=== PATIENT | male | born 1990 | race Caucasian/White ===

== ENCOUNTER → 2018-10-03 | Outpatient (REF) | payer OTHER ==
[2018-10-03 19:59] LABS: MONO REFLEX EBV COMP NEGATIVE (NEGATIVE)
[2018-10-03 20:06] LABS: BASO # 0.1 10^3/uL (0.0-0.2); BASO % 0.8 % (0.0-1.0); EOS # 0.1 10^3/uL (0.0-0.50); EOS % 1.8 % (0.0-3.0); HEMATOCRIT 42.8 % (42.0-52.0); HEMOGLOBIN 14.4 g/dl (13.5-17.5); LYMPH # 2.8 10^3/uL (1.5-4.5); LYMPH % 36.2 % (24.0-44.0); MEAN CORPUSCULAR HEMOGLOBIN 31.3 pg (27.0-33.0); MEAN CORPUSCULAR HGB CONC 33.6 g/dl (32.0-36.5); MONO # 1.1 10^3/uL (0.0-0.8); MONO % 13.5 % (0.0-5.0); NEUTROPHILS # 3.7 10^3/uL (1.8-7.7); NEUTROPHILS % 47.2 % (36.0-66.0); PLATELET COUNT, AUTOMATED 267 10^3/uL (150-450); WHITE BLOOD COUNT 7.8 10^3/uL (4.0-10.0)
[2018-10-06 00:40] LABS: EBV AB TO NUCLEAR ANTIGEN 85.4 U/mL (0.0-17.9); EBV VIRAL CAPSID AG IgM <36.0 U/mL (0.0-35.9)
== END ==
LOC: M LABDRWAD 19:28
PROVIDERS: ATTEND Physician Assistant Medical
DX: R59.0 Localized enlarged lymph nodes (principal)

== ENCOUNTER 2019-02-24 16:43 | Emergency (ER) | payer OTHER ==
[~2019-02-24] VITALS: Ht 170.2 cm; Wt 102.3 kg
[2019-02-24] MEDS ORDERED: LORA-674 PO (16:47)
[2019-02-24] MEDS ORDERED: VITA500045 PO (16:47)
[2019-02-24] MEDS ORDERED: PARO20TA3 PO (16:47)
[2019-02-24 16:57] VITALS: BP 148/81
[2019-02-24] MEDS ORDERED: IBUPROFEN 600 MG TAB PO ONE (17:00)
[2019-02-24] MEDS ORDERED: IBUP-1022 PO (17:01)
== END 2019-02-24 17:15 | disposition home or self-care (01) ==
LOC: M ED 16:43
DX: G56.01 Carpal tunnel syndrome, right upper limb (principal); F17.200 Nicotine dependence, unspecified, uncomplicated; Z79.899 Other long term (current) drug therapy

== ENCOUNTER → 2020-02-26 | Outpatient (REF) | payer OTHER ==
[~2020-02-26] MED LIST: IBUP-1022 PO; LORA-674; LORA-674 PO; PARO20TA3; PARO20TA3 PO; VITA500045 PO; VITA50005
[2020-02-26 17:08] LABS: BLOOD UREA NITROGEN 16 MG/DL (7-18); CARBON DIOXIDE LEVEL 27 MEQ/L (21-32); CHLORIDE LEVEL 105 MEQ/L (98-107); CREATININE FOR GFR 0.81 MG/DL (0.70-1.30); GLOMERULAR FILTRATION RATE > 60.0 (>60); GLUCOSE, FASTING 101 MG/DL (70-100); POTASSIUM SERUM 4.1 MEQ/L (3.5-5.1); SODIUM LEVEL 139 MEQ/L (136-145)
[2020-02-26 17:31] LABS: TOTAL 25(OH) VITAMIN D 13.7 NG/ML (30.0-100.0)
== END ==
LOC: MERGE 11:31 → M SFHCPLAZ 11:31
PROVIDERS: ATTEND Nurse Practitioner Family
DX: R73.03 Prediabetes (principal); E55.9 Vitamin D deficiency, unspecified

== ENCOUNTER 2020-05-06 09:15 | Emergency (ER) | payer OTHER ==
[~2020-05-06] VITALS: Ht 170.2 cm; Wt 106.7 kg
[~2020-05-06 09:15] MED LIST changes: -LORA-674; -PARO20TA3; -VITA50005
[2020-05-06] MEDS ORDERED: LORA-674 (09:22)
[2020-05-06] MEDS ORDERED: PARO20TA3 (09:22)
[2020-05-06] MEDS ORDERED: VITA50005 (09:22)
--- NOTE | 2020-05-06 10:20 | REP ---
Clinical: Right knee pain. Technique: AP, lateral, bilateral oblique and sunrise views right knee. Findings: The osseous structures are intact and there is no evidence for acute fracture or dislocation. Prepatellar swelling and suspected suprapatellar effusion require correlation. Impression: No acute fracture or dislocation. Swelling and suprapatellar effusion. Electronically Signed by Randy Ruth MD 05/06/2020 10:11 A
[2020-05-06 10:42] VITALS: BP 133/74
== END 2020-05-06 10:45 | disposition home or self-care (01) ==
LOC: MERGE 09:15 → M ED 09:15
DX: M25.461 Effusion, right knee (principal); S83.91XA Sprain of unspecified site of right knee, initial encounter; X58.XXXA Exposure to other specified factors, initial encounter; Y92.89 Other specified places as the place of occurrence of the external cause; F33.9 Major depressive disorder, recurrent, unspecified; Z79.899 Other long term (current) drug therapy

== ENCOUNTER → 2020-09-13 | Outpatient (CLI) | payer OTHER ==
[~2020-09-13] MED LIST changes: +LORA-674; +PARO20TA3; +VITA50005
== END ==
LOC: M LABSMTC 07:59
PROVIDERS: ATTEND Orthopaedic Surgery
DX: Z01.812 Encounter for preprocedural laboratory examination (principal); Z20.828 Contact with and (suspected) exposure to other viral communicable diseases

== ENCOUNTER 2021-01-31 16:12 | Emergency (ER) | payer OTHER ==
[~2021-01-31] VITALS: Ht 170.2 cm; Wt 67.7 kg
[2021-01-31] MEDS ORDERED: NAPR220C14 PO (16:17)
[2021-01-31 18:39] LABS: BASO # 0.1 10^3/uL (0.0-0.2); BASO % 0.5 % (0.0-1.0); EOS # 0.3 10^3/uL (0.0-0.5); HEMATOCRIT 44.5 % (42.0-52.0); LYMPH # 4.4 10^3/uL (1.5-5.0); LYMPH % 28.5 % (24.0-44.0); MEAN CORPUSCULAR HEMOGLOBIN 31.5 pg (27.0-33.0); MEAN CORPUSCULAR HGB CONC 33.7 g/dl (32.0-36.5); MEAN CORPUSCULAR VOLUME 93.5 fl (80.0-96.0); MONO % 6.6 % (2.0-8.0); NEUTROPHILS # 9.5 10^3/uL (1.5-8.5); NEUTROPHILS % 61.8 % (36.0-66.0); PLATELET COUNT, AUTOMATED 342 10^3/uL (150-450); RED BLOOD COUNT 4.76 10^6/uL (4.30-6.10); WHITE BLOOD COUNT 15.4 10^3/uL (4.0-10.0)
--- NOTE | 2021-01-31 18:49 | REP ---
INDICATION: pain/swelling. Bilateral knee series. COMPARISON: Comparison right knee radiographs are from May 06, 2020.. TECHNIQUE: 9 views. Five of each knee. Both knees are included on the sunrise view. FINDINGS: Five views of the left and right knee demonstrate normal bones, joints, and soft tissues. No fracture or subluxation is seen. No opaque foreign body noted. IMPRESSION: Negative bilateral knee radiographic series. <Electronically signed by Rohit Cintron > 01/31/21 [id number]
[2021-01-31 18:50] LABS: C REACTIVE PROTEIN QUANTITATIV 1.48 MG/DL (0.00-0.30); RHEUMATOID FACTOR QUANT < 10.0 IU/ML (<15.0)
[2021-01-31 19:08] LABS: ERYTHROCYTE SEDIMENTATION RATE 20 mm/hr (0-15)
[2021-01-31 21:10] VITALS: BP 150/77
[2021-01-31 23:51] LABS: CHLAMYDIA DNA AMPLIFICATION NEGATIVE (NEGATIVE); GC DNA AMPLIFICATION NEGATIVE (NEGATIVE)
[2021-02-03 17:07] LABS: Lyme Disease IgG/IgM Antibodie <0.91 ISR (0.00-0.90); Lyme Disease IgM Ab Quantitati <0.80 index (0.00-0.79)
== END 2021-01-31 21:10 | disposition home or self-care (01) ==
LOC: M ED 16:12
DX: M25.561 Pain in right knee (principal); M25.562 Pain in left knee; G47.33 Obstructive sleep apnea (adult) (pediatric); Z79.899 Other long term (current) drug therapy; Z77.098 Contact with and (suspected) exposure to other hazardous, chiefly nonmedicinal, chemicals

== ENCOUNTER → 2021-06-04 | Outpatient (REF) | payer OTHER ==
[~2021-06-04] MED LIST changes: +ERGO500029; +NAPR220C14 PO; -VITA50005
[2021-06-04 13:56] LABS: HEMOGLOBIN A1c 5.5 %
[2021-06-04 14:13] LABS: ALBUMIN 3.8 GM/DL (3.2-5.2); ALT/SGPT 34 U/L (12-78); BILIRUBIN,TOTAL 0.4 MG/DL (0.2-1.0); BLOOD UREA NITROGEN 17 MG/DL (7-18); CALCIUM LEVEL 9.1 MG/DL (8.5-10.1); CARBON DIOXIDE LEVEL 28 MEQ/L (21-32); CHLORIDE LEVEL 106 MEQ/L (98-107); CHOLESTEROL LEVEL 195 MG/DL (<200); CHOLESTEROL RISK RATIO 5.416 (<5); CREATININE FOR GFR 0.77 MG/DL (0.70-1.30); FREE T4 0.99 NG/DL (0.76-1.46); GLOMERULAR FILTRATION RATE > 60.0 (>60); GLUCOSE, FASTING 112 MG/DL (70-100); HDL CHOLESTEROL 36 MG/DL (>40); LDL CHOLESTEROL 110 MG/DL (<100); NON-HDL-C 159 MG/DL; POTASSIUM SERUM 4.6 MEQ/L (3.5-5.1); SODIUM LEVEL 137 MEQ/L (136-145); THYROID STIMULATING HORMONE 0.766 uIU/ML (0.358-3.740); TOTAL 25(OH) VITAMIN D 31.8 NG/ML (30.0-100.0); TOTAL PROTEIN 7.2 GM/DL (6.4-8.2); TRIGLYCERIDES LEVEL 245 MG/DL (<150)
== END ==
LOC: M SFHCADAM 10:15
PROVIDERS: ATTEND Nurse Practitioner Family
DX: R73.03 Prediabetes (principal); E66.09 Other obesity due to excess calories; E55.9 Vitamin D deficiency, unspecified

== ENCOUNTER 2021-08-06 18:11 | Emergency (ER) | payer OTHER ==
[~2021-08-06] VITALS: Ht 170.2 cm; Wt 104.5 kg
[2021-08-06 18:11] VITALS: BP 139/81
--- OUTSIDE RECORDS SUMMARY | 2021-08-06 18:18 | CCD ---
Author Organization Unknown Address [address] [place] [address] Phone [phone] Care Team Providers Care Travel Agent Name Role Phone [phone] Covid Vaccine Nurse Unavailable Unavailable Allergies None recorded. Medications None recorded. Problems None recorded. Procedures None recorded. Results Lab Results None recorded. Past Encounters 07/22/2021 Administration of SARS-CoV-2 Antigen Vaccine PRIYA Amador: [address] [place] [phone], Ph. 07/01/2021 Administration of SARS-CoV-2 Antigen Vaccine PRIYA Amador: [address] [place] [phone], Ph. Social History None recorded. Vaccine List Vaccine Type COVID-19, mRNA, LNP-S, PF, 30 mcg/0.3 mL dose .3 mL .3 mL Plan of Care Reminders Provider Appointments None recorded. Lab None recorded. Referral None recorded. Procedures None recorded. Surgeries None recorded. Imaging None recorded. Vitals None recorded.
--- OUTSIDE RECORDS SUMMARY | 2021-08-06 18:18 | CCD ---
Author Author [facility] Organization [facility] Address Unknown Phone Unavailable Care Team Providers Care Bottler Helper Name Role Phone Sophie Barrios Unavailable PROBLEMS Type Condition ICD9-CM Code ZJO32-[id number] Code Onset Dates Condition S tatus W/U Status Risk SNOMED Code Notes Problem Body mass index (BMI) of 30.0 to 39.9 E66.9 Ac tive confirmed 068963409 Problem STEPHAN (obstructive sleep apnea) G47.33 Active confirm ed 87588407 Problem Allergic rhinitis, seasonal J30.2 Active confirmed 095144816 Problem Family history of other cardiovascular diseases Z8 2.49 Active confirmed 529180228 Problem Vitamin D deficiency E55.9 Active confirmed 82354168 Problem Pre-diabetes R73.03 Active confirmed 8996648 02 Problem Premature ejaculation F52.4 Active confirmed 68862603 Problem BMI 36.0-36.9,adult Z68.36 Active confirmed 783567145 Problem Allergic rhinitis J30.9 Active confirmed 61 943299 Problem Mixed hyperlipidemia E78.2 Active confirmed 493150289 Problem Family history of diabetes mellitus (DM) Z83.3 Active confirmed 604708855 Problem Moderate major depression, single episode F32.1 Active confirmed 243986936 Problem Other tobacco product nicotine dependence, uncomplicated F17.290 Active confirmed 19613814 Problem Body mass index [BMI] 38.0-38.9, adult Z68.38 A ctive confirmed [id number] Problem Other obesity due to excess calories E66.09 Act daniel confirmed 348612012 ALLERGIES Allergen (clinical drug ingredient) Drug/Non Drug Allergy do cumented on EMR Reaction Allergy Type Onset Date Status seasonal allergies congestion Non Drug Allergy Active ENCOUNTERS from 1988 to 2021-06-22 Encounter Location Date Provider Diagnosis [facility] Thu [address] [facility] [phone] [place] [phone] May, Sophie Barrios Vitamin D deficiency E55.9 ; Moderate major depression, single episode F32.1 ; Premature ejaculation F52.4 ; Mixed hyperlipidemia E78.2 ; Pre- diabetes R73.03 ; Allergic rhinitis J30.9 and Other tobacco product nicotine dependence, uncomplicated F17.290 IMMUNIZATIONS Vaccine Route Administration Date Status Influenza 18 yrs & older Flublok IM Intramuscular Aug 29, 2019 Administered Pneumococcal Adult 0.5mL Pneumovax 23 IM Intramuscular January 10, 2020 Administered TDAP 0.5mL (Boostrix) IM Intramuscular January 07, 2014 Administe red Influenza 6mo & up Fluzone IM Intramuscular Dec 07, 2018 Admi nistered Influenza 6mo & up Fluzone IM Intramuscular Sep 02, 2016 Admi nistered Influenza 6mo & up Fluzone Unknown Sep 09, 2014 Admin istered SOCIAL HISTORY Tobacco Use: Social History Observation Description Date Details (start date - stop date) Former Smoker Sex Assigned At : Social History Observation Description Sex Assigned At Unknown Audit Question Answer Notes Total Score: 1 Interpretation: Alcohol Education Language: Question Answer Notes Languages spoken: Yi 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 Yes Have you ever had an STD? No Prevention Strategies discussed: Other with Women only Use protection? No Drug and Alcohol Question Answer Notes Total Score: 0 Interpretation: No problems reported Alcohol Screening: Question Answer Notes Did you have a drink containing alcohol in the past year? Ye s Points 3 Interpretation Negative How often did you have six or more drinks on one occas ion in the past year? Less than monthly (1 point) How many drinks did you have on a typica l day when you were drinking in the past year? 1 or 2 (0 points) How often did you have a drink containing alcohol in t he past year? Two to four times a month (2 points) BMI Care Goal Follow-Up Question Answer Notes Above Normal BMI Follow-Up Giving encouragement to exercise Tobacco Use: Question Answer Notes Are you a: former smoker How long has it been since you last smoked? 1-5 years REASON FOR REFERRAL No Information VITAL SIGNS Weight 229 lbs May, Height 67 in May, BMI 35.86 kg/m2 May, Heart Rate 84 /min May, Respiratory Rate 20 /min May, Temperature 97.1 degrees Fahrenheit May, Oximetry 97 May, Blood pressure systolic 130 mm Hg May, Blood pressure diastolic 70 mm Hg May, MEDICATIONS Medication SIG (Take, Route, Frequency, Duration) Notes Start Da te End Date Status Loratadine 10 MG 1 tablet Orally Once a day for 90 day(s) Active PARoxetine HCl 20 MG 1 tablet in the morning Orally Once a day for 30 Active Aleve 220 MG 1 tablet with food or milk as needed Orally once daily Active Vitamin D 2000 UNIT 1 tablet Orally Once a day with food for 90 day(s ) Active Saline Nasal [place] 0.65 % 2 drops in each nostril as n eeded Nasally every 4 hrs as needed Active PARoxetine HCl 30 MG 1 tablet in the morning Orally Once a day f or day(s) May, Active PROCEDURES No Information RESULTS No Results REASON FOR VISIT r/s f/u labs MEDICAL (GENERAL) HISTORY Type Description Date Medical History ganglion cyst on Rt wrist ( x 6 yrs), S/ P asp Dr Wilcox 02/27- Medical History Kawasaki Disease 3 yo Medical History Robertson- 5 yo Medical History LDL 92 12/28 Medical History Vit D Def. 16 12/28 Medical History allergic rhinitis, seasonal Medical History obesity Surgical History ganglion cyst removed rt wrist- [facility] Surgical History [place] [facility] [place] Goals Section No Information Health Concerns No Information MEDICAL EQUIPMENT No Information MENTAL STATUS No Information FUNCTIONAL STATUS No Information ASSESSMENTS Encounter Date Diagnosis Assessment Notes Treatment Notes Treatm ent Clinical Notes May, Vitamin D deficiency (ICD-10 - E55.9) improved - continue daily Vit D - may increase dose to 2 tabs over the winter May, Moderate major depression, single episode (ICD-1 0 - F32.1) mood good, will increase dose as discussed May, Premature ejaculation (ICD-10 - F52.4) increase paroxetine as above May, Mixed hyperlipidemia (ICD-10 - E78.2) diet & exercise for high Trig and low HDL reviewed with patient. Check lipids yearly 31 Aug, 2021 Pre-diabetes (ICD-10 - R73.03) reinforced diet changes, lab improved, monitor yearly May, Allergic rhinitis (ICD-10 - J30.9) controlled on current meds May, Other tobacco product nicoti ne dependence, uncomplicated (ICD-10 - F17.290) continues vaping with decreasing nicotine dose - encouraged to taper off PLAN OF TREATMENT Medication Medication Name Sig Start Date Stop Date Loratadine 10 MG 1 tablet Orally Once a day for 90 day(s) Saline Nasal [place] 0.65 % 2 drops in each nostril as n eeded Nasally every 4 hrs as needed PARoxetine HCl 30 MG 1 tablet in the morning Orally Once a d ay for 90 day(s) May, Vitamin D 2000 UNIT 1 tablet Orally Once a day with food for 90 day(s) Treatment Notes Assessment Notes Clinical Notes Vitamin D deficiency improved - continue daily V it D - may increase dose to 2 tabs over the winter Moderate major depression, single episode mood good, will increase dose as discussed Premature ejaculation increase paroxetine as above Mixed hyperlipidemia diet & exercise for high Tri g and low HDL reviewed with patient. Check lipids yearly Pre-diabetes reinforced diet changes, lab improved, monitor yearly Allergic rhinitis controlled on current meds Other tobacco product nicotine dependence, uncomplicat ed continues vaping with decreasing nicotine dose - encouraged to taper off Next Appt Details 1 Year Reason:AWV Follow Up:1 YearAWV Insurance Providers Payer Name Payer Address Payer Phone Insured Name Patient Relati onship to Insured Coverage Start Date Coverage End Date [facility] [address] [facility] [phone] EDMOND RICHARDSON self
--- OUTSIDE RECORDS SUMMARY | 2021-08-06 18:18 | CCD ---
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 Name Role Phone Maring, Adam PA Unavailable Unavailable Maring, Adam PA Unavailable Unavailable Maring, Adam PA Unavailable Unavailable Maring, Adam PA Unavailable Unavailable Maring, Adam PA Unavailable Unavailable Maring, Adam PA Unavailable Unavailable Maring, Adam PA Unavailable Unavailable Maring, Adam PA Unavailable Unavailable Maring, Adam PA Unavailable Unavailable Maring, Adam PA Unavailable Unavailable Maring, Adam PA Unavailable Unavailable Maring, Adam PA Unavailable Unavailable Maring, Adam PA Unavailable Unavailable Maring, Adam PA Unavailable Unavailable Maring, Adam PA Unavailable Unavailable Maring, Adam PA Unavailable Unavailable DENYS TONEY MD Unavailable Unavailable DENYS TONEY MD Unavailable Unavailable DENYS TONEY MD Unavailable Unavailable DENYS TONEY MD Unavailable Unavailable DENYS TONEY MD Unavailable Unavailable EDNYS TONEY MD Unavailable Unavailable DENYS TONEY MD Unavailable Unavailable MARKWITH, DENYS OBANDO Unavailable Unavailable MARKWITH, DENYS OBANDO Unavailable Unavailable MARKWITH, DENYS OBANDO Unavailable Unavailable MARKWITH, DENYS OBANDO Unavailable Unavailable MARKWITH, DENYS OBANDO Unavailable Unavailable MARKWITH, DENYS OBANDO Unavailable Unavailable MARKWITH, DENYS OBANDO Unavailable Unavailable MARKWITH, DENYS OBANDO Unavailable Unavailable MARKWITH, DENYS OBANDO Unavailable Unavailable MARKWITH, DENYS OBANDO Unavailable Unavailable MARKWITH, DENYS OBANDO Unavailable Unavailable MARKWITH, DENYS OBANDO Unavailable Unavailable MARKWITH, DENYS OBANDO Unavailable Unavailable MARKWITH, DENYS OBANDO Unavailable Unavailable MARKWITH, DENYS OBANDO Unavailable Unavailable MARKWITH, DENYS OBANDO Unavailable Unavailable MARKWITH, DENYS OBANDO Unavailable Unavailable MARKWITH, DENYS OBANDO Unavailable Unavailable MARKWITH, DENYS OBANDO Unavailable Unavailable MARKWITH, DENYS OBANDO Unavailable Unavailable MARKWITH, DENYS OBANDO Unavailable Unavailable MARKWITH, DENYS OBANDO Unavailable Unavailable MARKWITH, DENYS OBNADO Unavailable Unavailable MARKWITH, DENYS OBANDO Unavailable Unavailable MARKWITH, DENYS OBANDO Unavailable Unavailable MARKWITH, DENYS OBANDO Unavailable Unavailable Schilling, Harrah Poonam Unavailable Unavailable Schilling, Harrah Poonam Unavailable Unavailable Schilling, Harrah Poonam Unavailable Unavailable Schilling, Harrah Poonam Unavailable Unavailable Schilling, Harrah Poonam Unavailable Unavailable Schilling, Harrah Poonam Unavailable Unavailable Schilling, Harrah Poonam Unavailable Unavailable Schilling, Harrah Poonam Unavailable Unavailable Schilling, Harrah Poonam Unavailable Unavailable Schilling, Harrah Poonam Unavailable Unavailable Schilling, Harrah Poonam Unavailable Unavailable Schilling, Harrah Poonam Unavailable Unavailable Schilling, Harrah Poonam Unavailable Unavailable Re-disclosure Warning The records that you are about to access may contain information from federally-assisted alcohol or drug abuse programs. If such information is present, then the following federally mandated warning applies: This information has been disclosed to you from records protected by federal confidentiality rules (42 CFR part 2). The federal rules prohibit you from making any further disclosure of this information unless further disclosure is expressly permitted by the written consent of the person to whom it pertains or as otherwise permitted by 42 CFR part 2. A general authorization for the release of medical or other information is NOT sufficient for this purpose. The Federal rules restrict any use of the information to criminally investigate or prosecute any alcohol or drug abuse patient.The records that you are about to access may contain highly sensitive health information, the redisclosure of which is protected by Article 27-F of the [facility] Public Health law. If you continue you may have access to information: Regarding HIV / AIDS; Provided by facilities licensed or operated by the [facility] Office of Mental Health; or Provided by the [facility] Office for People With Developmental Disabilities. If such information is present, then the following [facility] mandated warning applies: This information has been disclosed to you from confidential records which are protected by state law. State law prohibits you from making any further disclosure of this information without the specific written consent of the person to whom it pertains, or as otherwise permitted by law. Any unauthorized further disclosure in violation of state law may result in a fine or senior living sentence or both. A general authorization for the release of medical or other information is NOT sufficient authorization for further disc losure. Allergies and Adverse Reactions Type Description Substance Reaction Status Data Source(s ) Allergy to substance Allergy to substance Allergy to substance [place] ([facility]) Allergy to substance Allergy to substance Allergy to substance [place] ([facility]) Family History Family Member Name Family Member Gender Family Member Status Date o f Status Description Data Source(s) Unknown Unknown Problem [facility] ([facility]) mother, MGM and maternal siblings Unknown Male Problem MEDENT ([facility]) Encounters Encounter Providers Location Date Indications Data Source(s ) Outpatient Attender: Adam DEJESUS 07/22/20 12:50:37 PM EDT - 07/22/2021 01:13:49 PM EDT Docu[facility]ap ([facility] ) ANDERSON AmadorC: [address] [place] [address], Ph. Attender: Poonam Schilling [facility] 07/22/2021 12:00:00 AM EDT [facility] ([facility]) ANDERSON AmadorC: [address] [place] [address], Ph. Attender: Poonam Schilling [facility] 07/01/2021 12:00:00 AM EDT [place] ([facility]) ANDERSON AmadorC: [address] [place] [address], Ph. Attender: Poonam [facility] 07/01/2021 12:00:00 AM EDT [facility] ([facility]) [place]patient [address] [address] 06/16/2021 12:00:00 AM EDT eCW1 ([facility]) Outpatient [address] [address] 05/15/2021 12:00:00 AM EDT eCW1 ([facility]) Unknown [address] [facility] [address] 05/11/2021 12:00:00 AM EDT eCW1 ([facility]) Outpatient [address] [address] 02/13/2021 12:00:00 AM EDT eCW1 ([facility]) Outpatient Attender: Adam DEJESUS 01/15/20 08:32:10 AM EDT - 01/14/2021 10:14:08 AM EDT [facility] ([facility] ) Office Visit Attender: DENYS TONEY MD Physical Therapy 01:45:00 PM EST MEDENT ([facility]) Outpatient Attender: DENYS TONEY MD Physical Therapy 10:00:00 AM EDT MED[facility] ([facility]) [place] [address] [address] 07/16/2020 12:00:00 AM EDT eCW1 ([facility]) Immunizations Vaccine Date Status Description Data Source(s) COVID-19, mRNA, LNP-S, PF, 30 mcg/0.3 mL dose 07/23/2021 07: 57:16 AM EDT completed 10.3 mL [place] ([facility]) COVID-19 VACCINE Pfizer 07/23/2021 12:00:00 AM EDT completed [place] Vaccine Series Complete: YESThis Data wa s Submitted to [facility] Via GTxcel. COVID-19, mRNA, LNP-S, PF, 30 mcg/0.3 mL dose 07/01/2021 04: 10:14 PM EDT completed .3 mL [place] ([facility]) COVID-19, mRNA, LNP-S, PF, 30 mcg/0.3 mL dose 07/01/2021 04: 10:14 PM EDT completed .3 mL [place] ([facility]) COVID-19 VACCINE Pfizer 07/01/2021 12:00:00 AM EDT completed [place] Vaccine Series Complete: NOThis Data was Submitted to [facility] Via GTxcel. Medications Medication Brand Name Start Date Product Form Dose Route Admi nistrative Instructions Pharmacy Instructions Status Indications Reaction Description Data Source(s) Paroxetine Hydrochloride 30 MG Oral Tablet PAROXETINE HCL 06/17/2021 12:00:00 AM EDT tablet 90 TAKE ONE TABLET BY MOUTH ROCKY MEDINA MORNING TAKE ONE TABLET BY MOUTH EVERY MORNING SOLD: 06/19/2021 [facility] PARoxetine HCl 30 MG PARoxetine HCl 30 MG 06/16/2021 12:00:00 AM ED T 1.0 {tablet_in_the_morning} active PARoxeti ne HCl 30 MG eCW1 ([facility]) 50 mcg (2,000 unit) 02/14/2021 12:00:00 AM EDT capsule 30 TAKE ONE TABLET BY MOUTH EVERY DAY WITH FOOD TAKE ONE TABLET BY MOUTH EVERY DAY WITH FOOD SOLD: 06/15/2021 [facility] 50 mcg (2,000 unit) 02/14/2021 12:00:00 AM EDT capsule 30 TAKE ONE TABLET BY MOUTH EVERY DAY WITH FOOD TAKE ONE TABLET BY MOUTH EVERY DAY WITH FOOD SOLD: 05/15/2021 [facility] 50 mcg (2,000 unit) 02/14/2021 12:00:00 AM EDT capsule 30 TAKE ONE TABLET BY MOUTH EVERY DAY WITH FOOD TAKE ONE TABLET BY MOUTH EVERY DAY WITH FOOD SOLD: 04/15/2021 [facility] 50 mcg (2,000 unit) 02/14/2021 12:00:00 AM EDT capsule 30 TAKE ONE TABLET BY MOUTH EVERY DAY WITH FOOD TAKE ONE TABLET BY MOUTH EVERY DAY WITH FOOD SOLD: 03/17/2021 [facility] 50 mcg (2,000 unit) 02/14/2021 12:00:00 AM EDT capsule 30 TAKE ONE TABLET BY MOUTH EVERY DAY WITH FOOD TAKE ONE TABLET BY MOUTH EVERY DAY WITH FOOD SOLD: 07/15/2021 [facility] 10 mg 02/14/2021 12:00:00 AM EDT tablet 30 TAKE ONE TABLET BY MOUTH EVERY DAY TAKE ONE TABLET BY MOUTH EVERY DAY SOLD: 02/15/2021 [facility] 20 mg 02/14/2021 12:00:00 AM EDT tablet 90 TAKE ONE TABLET BY MOUTH EVERY MORNING TAKE ONE TABLET BY MOUTH EVERY MORNING SOLD: 05/15/2021 [facility] 20 mg 02/14/2021 12:00:00 AM EDT tablet 90 TAKE ONE TABLET BY MOUTH EVERY MORNING TAKE ONE TABLET BY MOUTH EVERY MORNING SOLD: 02/15/2021 [facility] 10 mg 02/14/2021 12:00:00 AM EDT tablet 30 TAKE ONE TABLET BY MOUTH EVERY DAY TAKE ONE TABLET BY MOUTH EVERY DAY SOLD: 06/15/2021 [facility] 10 mg 02/14/2021 12:00:00 AM EDT tablet 30 TAKE ONE TABLET BY MOUTH EVERY DAY TAKE ONE TABLET BY MOUTH EVERY DAY SOLD: 05/15/2021 [facility] 10 mg 02/14/2021 12:00:00 AM EDT tablet 30 TAKE ONE TABLET BY MOUTH EVERY DAY TAKE ONE TABLET BY MOUTH EVERY DAY SOLD: 04/15/2021 [facility] 10 mg 02/14/2021 12:00:00 AM EDT tablet 30 TAKE ONE TABLET BY MOUTH EVERY DAY TAKE ONE TABLET BY MOUTH EVERY DAY SOLD: 03/17/2021 [facility] 10 mg 02/14/2021 12:00:00 AM EDT tablet 30 TAKE ONE TABLET BY MOUTH EVERY DAY TAKE ONE TABLET BY MOUTH EVERY DAY SOLD: 07/15/2021 [facility] 50 mcg (2,000 unit) 02/14/2021 12:00:00 AM EDT capsule 30 TAKE ONE TABLET BY MOUTH EVERY DAY WITH FOOD TAKE ONE TABLET BY MOUTH EVERY DAY WITH FOOD SOLD: 02/15/2021 [facility] 20 mg 01/01/2021 12:00:00 AM EDT tablet 30 TAKE ONE TABLET BY MOUTH EVERY MORNING TAKE ONE TABLET BY MOUTH EVERY MORNING SOLD: 01/02/2021 [facility] 20 mg 11/03/2020 12:00:00 AM EST tablet 30 TAKE ONE TABLET BY MOUTH IN THE MORNING ONCE A DAY TAKE ONE TABLET BY MOUTH IN THE MORNING ONCE A DAY VALENTÍN [facility] 20 mg 11/03/2020 12:00:00 AM EST tablet 30 TAKE ONE TABLET BY MOUTH IN THE MORNING ONCE A DAY TAKE ONE TABLET BY MOUTH IN THE MORNING ONCE A DAY VALENTÍN [facility] 10 mg 10/01/2020 12:00:00 AM EST tablet 30 TAKE ONE TABLET BY MOUTH EVERY DAY TAKE ONE TABLET BY MOUTH EVERY DAY SOLD: 10/06/2020 [facility] 5-325 mg 09/16/2020 12:00:00 AM EST tablet 20 TAKE ONE TABLET BY MOUTH EVERY 4 HOURS NEEDED FOR POST-OP PAIN, MAXIMUM DAILY DOSE = 6 TABLETS TAKE ONE TABLET BY MOUTH EVERY 4 HOURS NEEDED FOR POST-OP PAIN, MAXIMUM DAILY DOSE = 6 TABLETS SOLD: 09/18/2020 [facility] Acetaminophen 325 MG / Hydrocodone Bitartrate 5 MG Ora l Tablet Hydrocodone-Acetaminophen 08/22/2020 12:00:00 AM EST active MEDENT ([facility]) 55 mcg 07/17/2020 12:00:00 AM EDT aerosol,spray 16 INHALE 1 PUFF IN EACH NOSTRIL ONCE A DAY INHALE 1 PUFF IN EACH NOSTRIL ONCE A DAY SOLD: 09/03/2020 [facility] 55 mcg 07/17/2020 12:00:00 AM EDT aerosol,spray 16 INHALE 1 PUFF IN EACH NOSTRIL ONCE A DAY INHALE 1 PUFF IN EACH NOSTRIL ONCE A DAY SOLD: 07/18/2020 [facility] 4 mg 06/06/2020 12:00:00 AM EDT tablets,dose pack 21 USE DIRECTED ON PACKAGE USE DIRECTED ON PACKAGE SOLD: 06/07/2020 [facility] Medrol Medrol 06/06/2020 12:00:00 AM EDT completed MED[facility] ([facility]) 20 mg 03/31/2020 12:00:00 AM EDT tablet 30 TAKE ONE TABLET BY MOUTH EVERY MORNING TAKE ONE TABLET BY MOUTH EVERY MORNING SOLD: 09/03/2020 [facility] 20 mg 03/31/2020 12:00:00 AM EDT tablet 30 TAKE ONE TABLET BY MOUTH EVERY MORNING TAKE ONE TABLET BY MOUTH EVERY MORNING SOLD: 06/07/2020 [facility] 20 mg 03/31/2020 12:00:00 AM EDT tablet 30 TAKE ONE TABLET BY MOUTH EVERY MORNING TAKE ONE TABLET BY MOUTH EVERY MORNING SOLD: 07/18/2020 [facility] 20 mg 03/31/2020 12:00:00 AM EDT tablet 30 TAKE ONE TABLET BY MOUTH EVERY MORNING TAKE ONE TABLET BY MOUTH EVERY MORNING SOLD: 10/06/2020 [facility] 10 mg 02/26/2020 12:00:00 AM EDT tablet 30 TAKE ONE TABLET BY MOUTH EVERY DAY TAKE ONE TABLET BY MOUTH EVERY DAY SOLD: 06/07/2020 [facility] 10 mg 02/26/2020 12:00:00 AM EDT tablet 30 TAKE ONE TABLET BY MOUTH EVERY DAY TAKE ONE TABLET BY MOUTH EVERY DAY SOLD: 09/03/2020 [facility] 55 mcg 02/26/2020 12:00:00 AM EDT aerosol,spray 16 SPRAY ONE SPRAY INTO EACH NOSTRIL ONCE DAILY (SHOULD LASYT 60 DAYS) SPRAY ONE SPRAY INTO EACH NOSTRIL ONCE DAILY (SHOULD LASYT 60 DAYS) SOLD: 06/07/2020 [facility] 10 mg 02/26/2020 12:00:00 AM EDT tablet 30 TAKE ONE TABLET BY MOUTH EVERY DAY TAKE ONE TABLET BY MOUTH EVERY DAY SOLD: 07/18/2020 [facility] Insurance Providers Payer name Policy type / Coverage type Policy ID Covered republican ID Covered republican's relationship to delgadillo Policy Delgadillo Plan Information [facility] Community Plan Commercial [id number] [employer] [id number] [employer] [id number] / [id number] emp [id number] Employee [id number] [employer] [place] emp [id number] Employee [id number] [facility] O [id number] ANSI-Commercial [id number] ANSI-Medicaid [id number] [employer]Y [employer] WORK[employer] COMP [id number] SP [id number] [facility] Health Maintenance Organization [place] [place] [id number] Self [id number] ANSI-Medicaid [id number] ANSI-Commercial [id number] ANSI-Medicaid [id number] ANSI-Commercial [id number] [facility] Health Maintenance Organization (O) [id number] Self [id number] [facility] [id number] SP [id number] [facility] Health Maintenance Organization (O) [id number] Self [id number] [facility] Health Maintenance Organization (O) [id number] Self [id number] [facility] Health Maintenance Organization (O) [id number] Self [id number] [facility] Health Maintenance Organization (O) [id number] Self [id number] [facility] Health Maintenance Organization (O) [id number] Self [id number] MEDICAID [id number] SP [id number] [facility] Health Maintenance Organization (HMO) [id number] Self [id number] [facility] Health Maintenance Organization (HMO) [id number] Self [id number] [facility] Health Maintenance Organization (HMO) [id number] [facility] [id number] SP [id number] [facility] [id number] SP [id number] [facility] [id number] SP [id number] [facility] Problems, Conditions, and Diagnoses Code Display Name Description Problem Type Effective Dates Data Source(s) E78.2 [id number] Mixed hyperlipidemia Problem 06/16/2021 12:0 0:00 AM EDT eCW1 ([facility]) Z68.36 [id number] BMI 36.0-36.9,adult Problem 05/15/2021 12:00 :00 AM EDT eCW1 ([facility]) E66.09 Obesity due to excess calories Other obesity due to excess calories Problem 02/13/2021 12:00:00 AM EDT eCW1 ([facility]) Z68.38 Body mass index 35.00 to 39.99 Body mass index [ BMI] 38.0-38.9, adult Problem 02/13/2021 12:00:00 AM EDT eCW1 ([facility]) Surgeries/Procedures Procedure Description Date Indications Data Source(s) Arthroscopy Knee Chondroplasty 09/17/2020 12:00:00 AM [facility] ARTHROCENTESIS ASPIR&/INJECTION MAJOR JT/BURSA 020 12:00:00 AM EDT MEDENT ([facility]) Results ID Date Data Source [id number] 09/13/2020 08:30:00 AM EST MEDENT ([facility]) Name Value Range Interpretation Code Description Data Paola rce(s) Supporting Document(s) Coronavirus 2019 Nasopharygeal Laboratory test result MEDENT ([facility]) This nucleic acid amplification test was developed and its performance characteristics determined by [facility]. Nucleic acid amplification tests include PCR and TMA. This test has not been FDA cleared or approved. This test has been authorized by FDA under an Emergency Use Authorization (EUA). This test is only authorized for the duration of time the declaration that circumstances exist justifying the authorization of the emergency use of in vitro diagnostic tests for detection of SARS-CoV-2 virus and/or diagnosis of COVID-19 infection under section 564(b)(1) of the Act, 21 U.S.C. 360bbb-3 (b) (1), unless the authorization is terminated or revoked sooner. When diagnostic testing is negative, the possibility of a false negative result should be considered in the context of a patient's recent exposures and the presence of clinical signs and symptoms consistent with COVID-19. An individual without symptoms of COVID-19 and who is not shedding SARS-CoV-2 virus would expect to have a negative (not detected) result in this assay. Performed at: [facility] [address] [address] [id number] Boat Pilot: Connie Casiano PhD, Phone: [phone] Not Detected ID Date Data Source [id number] 09/13/2020 08:30:00 AM EST [facility] Name Value Range Interpretation Code Description Data Paola rce(s) Supporting Document(s) SARS coronavirus 2 [facility] This lab was ordered by [facility] and reported by [facility]. Procedure Social History Code Duration Value Status Description Data Source(s ) Smoking 06/16/2021 12:00:00 AM EDT Former Smoker completed Former Smoker eCW1 ([facility]) Smoking 05/15/2021 12:00:00 AM EDT Former Smoker completed Former Smoker eCW1 ([facility]) Smoking 02/13/2021 12:00:00 AM EDT Former Smoker completed Former Smoker eCW1 ([facility]) Smoking 02/13/2021 12:00:00 AM EDT Former Smoker completed Former Smoker eCW1 ([facility]) Vital Signs ID Date Data Source UNK Name Value Range Interpretation Code Description Data Source(s) Body weight 229 [lb_av] 229 [lb_av] eCW1 ([facility]) Body height 67 [in_i] 67 [in_i] eCW1 ([facility]) Body mass index (BMI) [Ratio] 35.86 kg/m2 35.86 kg/m2 eCW1 ([facility]) Heart rate 84 /min 84 /min eCW1 ([facility]) Respiratory rate 20 /min 20 /min eCW1 ([facility]) Body temperature 97.1 [degF] 97.1 [degF] eCW1 ( [facility]) Systolic blood pressure 130 mm[Hg] 130 mm[Hg] e CW1 ([facility]) Diastolic blood pressure 70 mm[Hg] 70 mm[Hg] eCW1 ([facility]) Body weight 235 [lb_av] 235 [lb_av] eCW1 ([facility]) Body height 67 [in_i] 67 [in_i] eCW1 ([facility]) Body mass index (BMI) [Ratio] 36.80 kg/m2 36.80 kg/m2 eCW1 ([facility]) Heart rate 84 /min 84 /min eCW1 ([facility]) Respiratory rate 20 /min 20 /min eCW1 ([facility]) Body temperature 97.5 [degF] 97.5 [degF] eCW1 ( [facility]) Systolic blood pressure 124 mm[Hg] 124 mm[Hg] e CW1 ([facility]) Diastolic blood pressure 60 mm[Hg] 60 mm[Hg] eCW1 ([facility]) Systolic blood pressure 140 mm[Hg] 140 mm[Hg] e CW1 ([facility]) Diastolic blood pressure 70 mm[Hg] 70 mm[Hg] eCW1 ([facility]) Body weight 248 [lb_av] 248 [lb_av] eCW1 ([facility]) Body height 67 [in_i] 67 [in_i] eCW1 ([facility]) Body mass index (BMI) [Ratio] 38.84 kg/m2 38.84 kg/m2 eCW1 ([facility]) Heart rate 88 /min 88 /min eCW1 ([facility]) Respiratory rate 20 /min 20 /min eCW1 ([facility]) Body temperature 98.4 [degF] 98.4 [degF] eCW1 ( [facility]) Body temperature 97.1 [degF] 97.1 [degF] [facility]DIMPLE ([facility] Patient Treatment Plan of Care Planned Activity Planned Date Details Description Data Source (s) PARoxetine HCl 30 MG 06/16/2021 12:00:00 AM EDT eCW1 ([facility])
--- OUTSIDE RECORDS SUMMARY | 2021-08-06 18:18 | CCD ---
Author Author [facility] Organization [facility] Address Unknown Phone Unavailable Care Team Providers Care Personnel Worker Name Role Phone Sophie Barrios Unavailable PROBLEMS Type Condition ICD9-CM Code [id number] Code Onset Dates Condition S tatus W/U Status Risk SNOMED Code Notes Problem STEPHAN (obstructive sleep apnea) G47.33 Active confirm ed 52174644 Problem Family history of other cardiovascular diseases Z8 2.49 Active confirmed 155748195 Problem Allergic rhinitis, seasonal J30.2 Active confirmed 173191484 Problem Allergic rhinitis J30.9 Active confirmed 61 510316 Problem Vitamin D deficiency E55.9 Active confirmed 66110298 Problem Pre-diabetes R73.03 Active confirmed 9930361 02 Problem Other obesity due to excess calories E66.09 Act daniel confirmed 784484553 Problem Family history of diabetes mellitus (DM) Z83.3 Active confirmed 430037434 Problem BMI 36.0-36.9,adult Z68.36 Active confirmed 226123708 Problem Body mass index (BMI) of 30.0 to 39.9 E66.9 Ac tive confirmed 942940067 Problem Premature ejaculation F52.4 Active confirmed 93603417 Problem Moderate major depression, single episode F32.1 Active confirmed 739697413 Problem Other tobacco product nicotine dependence, uncomplicated F17.290 Active confirmed 13626700 Problem Body mass index [BMI] 38.0-38.9, adult Z68.38 A ctive confirmed [id number] ALLERGIES Allergen (clinical drug ingredient) Drug/Non Drug Allergy do cumented on EMR Reaction Allergy Type Onset Date Status seasonal allergies congestion Non Drug Allergy Active ENCOUNTERS from 1988 to 2021-05-26 Encounter Location Date Provider Diagnosis [address] [phone] [place] [address] Apr, Sophiegertrude Barrios Muscle strain of right napoleon smith, initial encounter S46.911A ; Vitamin D deficiency E55.9 ; Allergic rhinitis J30.9 ; Moderate major depression, single episode F32.1 ; Pre-diabetes R73.03 ; Other tobacco product nicotine dependence, uncomplicated F17.290 ; STEPHAN (obstructive sleep apnea) G47.33 ; Other obesity due to excess calories E66.09 and BMI 36.0-36.9,adult Z68.36 IMMUNIZATIONS Vaccine Route Administration Date Status Influenza [...] Education Language: Question Answer Notes Languages spoken: Brazilian Denominational: Question Answer Notes Denominational 08 Mosque Sexual Hx: Question Answer Notes Had sex [...] FOR REFERRAL No Information VITAL SIGNS Weight 235 lbs Apr, Height 67 in Apr, BMI 36.80 kg/m2 Apr, Heart Rate 84 /min Apr, Respiratory Rate 20 /min Apr, Temperature 97.5 degrees Fahrenheit Apr, Oximetry 97 Apr, Blood pressure systolic 124 mm Hg Apr, Blood pressure diastolic 60 mm Hg Apr, MEDICATIONS Medication SIG (Take, Route, Frequency, Duration) Notes Start Da te End Date Status Vitamin D 2000 UNIT 1 tablet Orally Once a day with food for 90 day(s ) Active Aleve 220 MG 1 tablet with food or milk as needed Orally once daily Active Saline Nasal [place] 0.65 % 2 drops in each nostril as n eeded Nasally every 4 hrs as needed for 30 Active PARoxetine HCl 20 MG 1 tablet in the morning Orally Once a day f or 90 day(s) Active Loratadine 10 MG 1 tablet Orally Once a day for 90 day(s) Active PARoxetine HCl 20 MG 1 tablet in the morning Orally Once a day for 30 Active PROCEDURES No Information RESULTS No Results REASON FOR VISIT 3m f/u no labs MEDICAL (GENERAL) HISTORY Type Description Date Medical History ganglion cyst on Rt wrist ( x 6 yrs), S/ P asp Dr Wilcox 02/27- Medical History Kawasaki Disease 3 yo Medical History [place]- 5 yo Medical History LDL 92 12/28 Medical History Vit D Def. 16 12/28 Medical History allergic rhinitis, seasonal Medical History obesity Surgical History ganglion cyst removed rt wrist- [facility] Surgical History right knee cartilage repair - [facility] 10/05 Goals Section No Information Health Concerns No Information MEDICAL EQUIPMENT No Information MENTAL STATUS No Information FUNCTIONAL STATUS No Information ASSESSMENTS Encounter Date Diagnosis Assessment Notes Treatment Notes Treatm ent Clinical Notes Apr, Muscle strain of right shoul sarah, initial encounter (ICD-10 - S46.911A) supportive care advised - heat or ice, stretching, topical rubs, and proper body mechanics. F/up if symptoms worsen or not improving Apr, Vitamin D deficiency (ICD-10 - E55.9) check lab prior to f/up, continue daily Vit D Apr, Allergic rhinitis (ICD-10 - J30.9) Apr, Moderate major depression, single episode (ICD-1 0 - F32.1) mood good, on current dose Apr, Pre-diabetes (ICD-10 - R73.03) reinforced diet changes, check labs prior to f/up Apr, Other tobacco product nicoti ne dependence, uncomplicated (ICD-10 - F17.290) continues vaping with decreasing nicotine dose - encouraged to taper off Apr, STEPHAN (obstructive sleep apnea) (ICD-10 - G47.33) continues CPAP per pulmonology Apr, Other obesity due to excess calories (ICD-10 - E 66.09) improving - diet & exercise reviewed with patient Apr, BMI 36.0-36.9,adult (ICD-10 - Z68.36) PLAN OF TREATMENT Medication Medication Name Sig Start Date Stop Date Vitamin D 2000 UNIT 1 tablet Orally Once a day with food for 90 day(s) Loratadine 10 MG 1 tablet Orally Once a day for 90 day(s) PARoxetine HCl 20 MG 1 tablet in the morning Orally Once a day f or 90 day(s) Treatment Notes Assessment Notes Clinical Notes Muscle strain of right shoulder, initial encounter sup portive care advised - heat or ice, stretching, topical rubs, and proper body mechanics. F/up if symptoms worsen or not improving Vitamin D deficiency check lab prior to f/up, continue daily Vit D Moderate major depression, single episode mood good, on current dose Pre-diabetes reinforced diet changes, check labs vladimir or to f/up Other tobacco product nicotine dependence, uncomplicat ed continues vaping with decreasing nicotine dose - encouraged to taper off STEPHAN (obstructive sleep apnea) continues CPAP per pulmonology Other obesity due to excess calories improving - diet & exercise reviewed with patient Next Appt Details 2 -4 Weeks Reason:f/u after labs Provider Name:Sophie Barrios, 2021-06-04 11:1 5:00 AM, [address] [facility], , [place], [address], Follow Up:2 -4 Weeksf/u after labs Insurance Providers Payer Name Payer Address Payer Phone Insured Name Patient Relati onship to Insured Coverage Start Date Coverage End Date [facility] [address] [facility] [phone] EDMOND RICHARDSON self
--- OUTSIDE RECORDS SUMMARY | 2021-08-06 18:18 | CCD ---
Author [facility] Address Unknown Phone Unavailable Care Team Providers Care [employer] Name Role Phone Sophie Barrios Unavailable PROBLEMS Type Condition ICD9-CM Code [id number] Code Onset Dates Condition S tatus W/U Status Risk SNOMED Code Notes Problem Family history of other cardiovascular diseases Z8 2.49 Active confirmed 864994698 Problem STEPHAN (obstructive sleep apnea) G47.33 Active confirm ed 79066934 Problem Family history of diabetes mellitus (DM) Z83.3 Active confirmed 020473267 Problem Allergic rhinitis J30.9 Active confirmed 61 497921 Problem Vitamin D deficiency E55.9 Active confirmed 11387418 Problem Body mass index [BMI] 38.0-38.9, adult Z68.38 A ctive confirmed 726013713427345 Problem Body mass index (BMI) of 30.0 to 39.9 E66.9 Ac tive confirmed 813119870 Problem Other obesity due to excess calories E66.09 Act daniel confirmed 846474889 Problem Allergic rhinitis, seasonal J30.2 Active confirmed 360965795 Problem Pre-diabetes R73.03 Active confirmed 2714771 02 Problem Premature ejaculation F52.4 Active confirmed 92543815 Problem Moderate major depression, single episode F32.1 Active confirmed 646611542 Problem Other tobacco product nicotine dependence, uncomplicated F17.290 Active confirmed 71820825 ALLERGIES Allergen (clinical drug ingredient) Drug/Non Drug Allergy do cumented on EMR Reaction Allergy Type Onset Date Status seasonal allergies congestion Non Drug Allergy Active ENCOUNTERS from 1988 to 2021-05-12 Encounter Location Date Provider Diagnosis [address] [phone] [place] [address] Apr, Sophie [place] IMMUNIZATIONS Vaccine Route Administration Date Status Influenza [...] Education Language: Question Answer Notes Languages spoken: Cypriot Latter-Day: Question Answer Notes Latter-Day 08 Orthodox Sexual Hx: Question Answer Notes Had sex [...] REASON FOR REFERRAL No Information VITAL SIGNS No information MEDICATIONS Medication SIG (Take, Route, Frequency, Duration) Notes Start Da te End Date Status Saline Nasal [place] 0.65 % 2 drops in each nostril as n eeded Nasally every 4 hrs as needed for 30 Active Loratadine 10 MG 1 tablet Orally Once a day for 90 day(s) Active Vitamin D 2000 UNIT 1 tablet Orally Once a day with food for 90 day(s ) Active PARoxetine HCl 20 MG 1 tablet in the morning Orally Once a day for 30 Active Drisdol 1.25 MG (83196 UT) 1 capsule Orally once a week with meal for 90 day(s) February, Not-Taking PARoxetine HCl 20 MG 1 tablet in the morning Orally Once a day f or 90 day(s) Active Lac-Hydrin 12 % 1 application to affected ar eas on knees Externally Twice a day for 30 Not-Taking Aleve 220 MG 1 tablet with food or milk as needed Orally once daily Active Triamcinolone Acetonide 55 MCG/ACT 1 puff in each nost ril Nasally Once a day for 30 day(s) Not-Taking PROCEDURES No Information RESULTS No Results REASON FOR VISIT blood work orders for cancer MEDICAL (GENERAL) HISTORY Type Description Date Medical History ganglion cyst on Rt wrist ( x 6 yrs), S/ P asp Dr Wilcox 02/27- Medical History Kawasaki Disease 3 yo Medical History [place]- 5 yo Medical History LDL 92 12/28 Medical History Vit D Def. 16 12/28 Medical History allergic rhinitis, seasonal Medical History obesity Surgical History ganglion cyst removed rt wrist- [facility] Surgical History [place] [facility] [place] Goals Section No Information Health Concerns No Information MEDICAL EQUIPMENT No Information MENTAL STATUS No Information FUNCTIONAL STATUS No Information ASSESSMENTS No Information PLAN OF TREATMENT Medication Medication Name Sig Start Date Stop Date Vitamin D 2000 UNIT 1 tablet Orally Once a day with food for 90 day(s) PARoxetine HCl 20 MG 1 tablet in the morning Orally Once a day f or 90 day(s) Loratadine 10 MG 1 tablet Orally Once a day for 90 day(s) Next Appt Details Provider Name:Sophie Barrios, 2021-05-15 09:1 5:00 AM, [address] [facility], , [place], [address], Insurance Providers Payer Name Payer Address Payer Phone Insured Name Patient Relati onship to Insured Coverage Start Date Coverage End Date [facility] [address] [facility] [phone] EDMOND RICHARDSON self
--- OUTSIDE RECORDS SUMMARY | 2021-08-06 18:18 | CCD ---
Author Organization Unknown Address [address] [place] [address] Phone [phone] Care Team Providers Care Designer And Patternmaker Name Role Phone [phone] Covid Vaccine Nurse Unavailable Unavailable Allergies None recorded. Medications None recorded. Problems None recorded. Procedures None recorded. Results Lab Results None recorded. Past Encounters 07/01/2021 SARS-CoV-2 Vaccination PRIYA Amador: [address] [place] [address], Ph. Social History None recorded. Vaccine List Vaccine Type COVID-19, mRNA, LNP-S, PF, 30 mcg/0.3 mL dose .3 mL Plan of Care Reminders Provider Appointments None recorded. Lab None recorded. Referral None recorded. Procedures None recorded. Surgeries None recorded. Imaging None recorded. Vitals None recorded.
--- OUTSIDE RECORDS SUMMARY | 2021-08-06 18:18 | CCD | Continuity of Care Document ---
Author Author Haseeb WOOD MD Organization Unknown Address [address] [place] [address] Phone [phone] Care Team Providers Care Document Specialist Name Role Phone Joel Martinez MD AUTM Unavailable Sophie Barrios COMMUNICATIONS EXECUTIVE-C AUTM [phone] Problems Description No Information Available Social History Type Date Description Comments Sex Unknown ETOH Use Occasionally consumes alcohol Tobacco Use Start: Unknown Patient is a current smoker, smo kes every day Smoking Status Reviewed: 08/15/20 Patient is a current smoker, smokes every day Allergies and adverse reactions Description No Known Drug Allergies Medications Active Medications SIG Qnty Indications Ordering Provide r Date Hydrocodone-Acetaminophen 5-325mg Tablets 1 Tab Every 4 Hours For prn Post Op Pain. (Please DO Not Fill Until 09/16/2020) 20tabs Armando Wood MD 08/22/2020 Vitamin D3 Super Strength 2000Unit Tablets 1 by mouth every day Unknown 00/0 000 Ibuprofen 200mg Tablets as ne eded Unknown Loratadine-D 24HR 10 -240mg Tablets ER 24HR Unknown Paroxetine HCL 10mg Tablets 1 by mouth every day Unknown Immunizations Description No Information Available Vital Signs Date Vital Result Comment 09/26/2020 12:57pm Body Temperature 97.1 F 05/27/2020 3:41pm Body Temperature 98.0 F Height 67 inches 5'7" Weight 230.00 lb BMI (Body Mass Index) 36.0 kg/m2 Results Description No Information Available Procedures Description No Information Available Medical Devices Description No Information Available Encounters Description No Information Available Assessments Description No Information Available Plan of Treatment No Information Available Functional Status Description No Information Available Mental Status Description No Information Available Referrals Description No Information Available
--- OUTSIDE RECORDS SUMMARY | 2021-08-06 22:59 | CCD ---
Author Author [facility] Organization [facility] Address Unknown Phone Unavailable Care Team Providers Care Radiologic Electronic Specialist Name Role Phone Maring, Adam PA Unavailable [...] Unavailable MARKWITH, DENYS OBANDO Unavailable Unavailable MARKWITH, EDNYS OBANDO Unavailable Unavailable MARKWITH, DENYS OBANDO Unavailable [...] Unavailable MARKWITH, DENYS OBANDO Unavailable Unavailable Schilling, Ackworth Poonam Unavailable Unavailable Schilling, Ackworth Poonam Unavailable Unavailable Schilling, Ackworth Poonam Unavailable Unavailable Schilling, Ackworth Poonam Unavailable Unavailable Schilling, Ackworth Poonam Unavailable Unavailable Schilling, Ackworth Poonam Unavailable Unavailable Schilling, Ackworth Poonam Unavailable Unavailable Schilling, Ackworth Poonam Unavailable Unavailable Schilling, Ackworth Poonam Unavailable Unavailable Schilling, Ackworth Poonam Unavailable Unavailable Schilling, Ackworth Poonam Unavailable Unavailable Schilling, Ackworth Poonam Unavailable Unavailable Schilling, Ackworth Poonam Unavailable Unavailable Re-disclosure Warning The records [...] is protected by Article 27-F of the [facility] Public Health law. If you continue you may have access to information: Regarding HIV / AIDS; Provided by facilities licensed or operated by the [facility] Office of Mental Health; or Provided by the [facility] Office for People With Developmental Disabilities. If such information is present, then the following [facility] mandated warning applies: This information has been [...] law may result in a fine or prison sentence or both. A general authorization for the release of medical or other information is NOT sufficient authorization for further disc losure. Allergies and Adverse Reactions Type Description Substance Reaction Status Data Source(s ) Allergy to substance Allergy to substance Allergy to substance [facility] ([facility]) Allergy to substance Allergy to substance Allergy to substance [facility] ([facility]) Family History Family Member Name Family Member Gender Family Member Status Date o f Status Description Data Source(s) Unknown Unknown Problem MEDENT ([facility]) mother, MGM and maternal siblings Unknown Male Problem MEDENT ([facility]) Encounters Encounter Providers Location Date Indications Data Source(s ) Outpatient Attender: Adam DEJESUS 07/22/20 12:50:37 PM EDT - 07/22/2021 01:13:49 PM EDT DocuTap ([facility] ) ANDERSON AmadorC: [address] [place] [address], Ph. Attender: Poonam Schilling [facility] Medical 07/22/2021 12:00:00 AM EDT GRETCHEN ([facility]) ANDERSNO AmadorC: [address] [place] [address], Ph. Attender: Poonam Schilling [facility] Medical 07/01/2021 12:00:00 AM EDT [facility]SE ([facility]) ANDERSON AmadorC: [address] [place] [address], Ph. Attender: Poonam [facility] Medical 07/01/2021 12:00:00 AM EDT GRETCHEN ([facility]) [place] [address] [facility] [facility] [address] 06/16/2021 12:00:00 AM EDT eCW1 ([facility]) [place] [address] [address] 05/15/2021 12:00:00 AM EDT eCW1 ([facility]) Unknown [address] [facility] [id number] 05/11/2021 12:00:00 AM EDT eCW1 ([facility]) [place] [address] [facility] [facility] [address] 02/13/2021 12:00:00 AM EDT eCW1 ([facility]) Outpatient Attender: Adam DEJESUS 01/15/20 08:32:10 AM EDT - 01/14/2021 10:14:08 AM EDT [facility]Tap ([facility] ) Office Visit Attender: DENYS TONEY MD Physical Therapy 01:45:00 PM EST MEDENT ([facility]) Outpatient Attender: DENYS TONEY MD Physical Therapy 10:00:00 AM EDT MEDENT ([facility]) Unknown [address] [facility] [address] 07/16/2020 12:00:00 AM EDT eCW1 ([facility]) Immunizations Vaccine Date Status Description Data Source(s) COVID-19, mRNA, LNP-S, PF, 30 mcg/0.3 mL dose 07/23/2021 07: 57:16 AM EDT completed 10.3 mL GRETCHEN ([facility]) COVID-19 VACCINE Pfizer 07/23/2021 12:00:00 AM EDT completed [place] Vaccine Series Complete: YESThis Data wa s Submitted to [facility] Via [employer] [facility]. COVID-19, mRNA, LNP-S, PF, 30 mcg/0.3 mL dose 07/01/2021 04: 10:14 PM EDT completed .3 mL GRETCHEN ([facility]) COVID-19, mRNA, LNP-S, PF, 30 mcg/0.3 mL dose 07/01/2021 04: 10:14 PM EDT completed .3 mL GRETCHEN ([facility]) COVID-19 VACCINE Pfizer 07/01/2021 12:00:00 AM EDT completed [place] Vaccine Series Complete: NOThis Data was Submitted to [facility] Via [employer] [facility]. Medications Medication Brand Name Start Date Product [...] active PARoxeti ne HCl 30 MG eCW1 ([facility]) 50 mcg (2,000 unit) 02/14/2021 12:00:00 AM [...] Hydrocodone-Acetaminophen 08/22/2020 12:00:00 AM EST active MEDENT ([facility]) 55 mcg 07/17/2020 12:00:00 [...] Medrol 06/06/2020 12:00:00 AM EDT completed MEDENT ([facility]) 20 mg 03/31/2020 12:00:00 AM [...] type / Coverage type Policy ID Covered green party ID Covered green party's relationship to delgadillo Policy [place]illo Plan Information [facility] Community Plan Commercial [id number] [facility] [id number] [employer] [id number] emp [id number] Employee [id number] [employer] [place] emp [id number] Employee [id number] [facility] O [id number] ANSI-Commercial [id number] ANSI-Medicaid [id number] [employer] COMP [id number] SP [id number] [facility] Health Maintenance Organization ([facility]) [id number] Self [id number] ANSI-Medicaid [id number] ANSI-Commercial [id number] ANSI-Medicaid [id number] ANSI-Commercial [id number] [facility] Health Maintenance Organization (O) [id number] Self [id number] [facility] [id number] SP [id number] [facility] Health Maintenance Organization (O) [id number] Self [id number] [facility] Health Maintenance Organization (O) [id number] Self [id number] [facility] Health Maintenance Organization (O) [id number] Self [id number] [facility] Health Maintenance Organization (O) [id number] Self [id number] [facility] Health Maintenance Organization (O) [id number] Self [id number] MEDICAID [id number] SP [id number] [facility] Health Maintenance Organization (HMO) [id number] Self [id number] [facility] Health Maintenance Organization (HMO) [id number] Self [id number] [facility] Health Maintenance Organization (HMO) [id number] Self [facility] [id number] SP [id number] [facility] [id number] SP [id number] [facility] [id number] SP [id number] [facility] Problems, Conditions, and Diagnoses Code Display Name Description Problem Type Effective Dates Data Source(s) E78.2 [id number] Mixed hyperlipidemia Problem 06/16/2021 12:0 0:00 AM EDT eCW1 ([facility]) Z68.36 [id number] BMI 36.0-36.9,adult Problem 05/15/2021 12:00 :00 AM EDT eCW1 ([facility]) E66.09 Obesity due to excess calories Other obesity due to excess calories Problem 02/13/2021 12:00:00 AM EDT eCW1 ([facility]) Z68.38 Body mass index 35.00 to 39.99 Body mass index [ BMI] 38.0-38.9, adult Problem 02/13/2021 12:00:00 AM EDT eCW1 ([facility]) Surgeries/Procedures Procedure Description Date Indications Data Source(s) Arthroscopy Knee Chondroplasty 09/17/2020 12:00:00 [facility] ARTHROCENTESIS ASPIR&/INJECTION MAJOR JT/BURSA 020 12:00:00 AM EDT MEDENT ([facility]) Results ID Date Data Source [id number] 09/13/2020 08:30:00 AM EST MEDENT ([facility]) Name Value Range Interpretation Code Description Data Paola rce(s) Supporting Document(s) Coronavirus 2019 Nasopharygeal Laboratory test result MEDENT ([facility]) This nucleic acid amplification test was developed and its performance characteristics determined by [facility]. Nucleic acid amplification tests include PCR and [...] detected) result in this assay. Performed at: [facility] [address] [address] [id number] [employer] Mounter: Connie Casiano PhD, Phone: [phone] Not Detected ID Date Data Source [id number] 09/13/2020 08:30:00 AM EST [facility] Name Value Range Interpretation Code Description Data Paola rce(s) Supporting Document(s) [facility] 2 [facility] This lab was ordered by [facility] and reported by [facility]. Procedure Social History Code Duration Value Status Description Data Source(s ) Smoking 06/16/2021 12:00:00 AM EDT Former Smoker completed Former Smoker eCW1 ([facility]) Smoking 05/15/2021 12:00:00 AM EDT Former Smoker completed Former Smoker eCW1 ([facility]) Smoking 02/13/2021 12:00:00 AM EDT Former Smoker completed Former Smoker eCW1 ([facility]) Smoking 02/13/2021 12:00:00 AM EDT Former Smoker completed Former Smoker eCW1 ([facility]) Vital Signs ID Date Data Source UNK Name Value Range Interpretation Code Description Data Source(s) Body weight 229 [lb_av] 229 [lb_av] eCW1 ([facility]) Body height 67 [in_i] 67 [in_i] eCW1 ([facility]) Body mass index (BMI) [Ratio] 35.86 kg/m2 35.86 kg/m2 eCW1 ([facility]) Heart rate 84 /min 84 /min eCW1 ([facility]) Respiratory rate 20 /min 20 /min eCW1 ([facility]) Body temperature 97.1 [degF] 97.1 [degF] eCW1 ( [facility]) Systolic blood pressure 130 mm[Hg] 130 mm[Hg] e CW1 ([facility]) Diastolic blood pressure 70 mm[Hg] 70 mm[Hg] eCW1 ([facility]) Body weight 235 [lb_av] 235 [lb_av] eCW1 ([facility]) Body height 67 [in_i] 67 [in_i] eCW1 ([facility]) Body mass index (BMI) [Ratio] 36.80 kg/m2 36.80 kg/m2 eCW1 ([facility]) Heart rate 84 /min 84 /min eCW1 ([facility]) Respiratory rate 20 /min 20 /min eCW1 ([facility]) Body temperature 97.5 [degF] 97.5 [degF] eCW1 ( [facility]) Systolic blood pressure 124 mm[Hg] 124 mm[Hg] e CW1 ([facility]) Diastolic blood pressure 60 mm[Hg] 60 mm[Hg] eCW1 ([facility]) Body weight 248 [lb_av] 248 [lb_av] eCW1 ([facility]) Body height 67 [in_i] 67 [in_i] eCW1 ([facility]) Body mass index (BMI) [Ratio] 38.84 kg/m2 38.84 kg/m2 eCW1 ([facility]) Heart rate 88 /min 88 /min eCW1 ([facility]) Respiratory rate 20 /min 20 /min eCW1 ([facility]) Body temperature 98.4 [degF] 98.4 [degF] eCW1 ( [facility]) Systolic blood pressure 140 mm[Hg] 140 mm[Hg] e CW1 ([facility]) Diastolic blood pressure 70 mm[Hg] 70 mm[Hg] eCW1 ([facility]) Body temperature 97.1 [degF] 97.1 [degF] RICKY ([facility] Patient Treatment Plan of Care Planned Activity Planned Date Details Description Data Source (s) PARoxetine HCl 30 MG 06/16/2021 12:00:00 AM EDT eCW1 ([facility])
== END 2021-08-06 22:57 | disposition left against medical advice (07) ==
LOC: M ED 18:11
DX: Z53.29 Procedure and treatment not carried out because of patient's decision for other reasons (principal)

== ENCOUNTER 2022-09-29 18:54 | Emergency (ER) | payer OTHER ==
[~2022-09-29] VITALS: Ht 170.2 cm; Wt 95.6 kg
[2022-09-29] MEDS ORDERED: PRED20TA PO (21:26)
[2022-09-29] MEDS ORDERED: COMBAER6 INH (21:26)
[2022-09-29 21:34] VITALS: BP 138/74
== END 2022-09-29 21:36 | disposition home or self-care (01) ==
LOC: M ED 18:54
DX: Z20.89 Contact with and (suspected) exposure to other communicable diseases (principal); R05.9 Cough, unspecified; R09.81 Nasal congestion; Z87.891 Personal history of nicotine dependence; Z79.899 Other long term (current) drug therapy

== ENCOUNTER → 2022-10-02 | Outpatient (CLI) | payer OTHER ==
[~2022-10-02] MED LIST changes: +COMBAER6 INH; +PRED20TA PO
== END ==
LOC: M RAD 11:06
PROVIDERS: ATTEND Physician Assistant
DX: J20.8 Acute bronchitis due to other specified organisms (principal)

== ENCOUNTER → 2023-02-02 | Outpatient (CLI) | payer OTHER | LOC: M PLAIMG 10:35 | PROVIDERS: ATTEND Nurse Practitioner Family | DX: R06.02 Shortness of breath (principal) ==

== ENCOUNTER → 2023-03-08 | Outpatient (CLI) | payer OTHER ==
[~2023-03-08] MED LIST changes: +METHACHOLINE KIT INH ONE
== END ==
LOC: M CARPUL 10:37
PROVIDERS: ATTEND Internal Medicine Pulmonary Disease
DX: R06.02 Shortness of breath (principal)
CPT/HCPCS: 94070; 95070; J7674

== ENCOUNTER → 2023-03-08 | Outpatient (REF) | payer OTHER ==
[~2023-03-08] MED LIST changes: -METHACHOLINE KIT INH ONE
[2023-03-08 17:05] LABS: BASO # 0.1 10^3/uL (0.0-0.2); BASO % 0.7 % (0.0-1.0); EOS # 0.4 10^3/uL (0.0-0.5); EOS % 3.8 % (0.0-3.0); HEMOGLOBIN 14.6 g/dl (13.5-17.5); LYMPH # 4.5 10^3/uL (1.5-5.0); LYMPH % 42.3 % (24.0-44.0); MEAN CORPUSCULAR HEMOGLOBIN 31.8 pg (27.0-33.0); MEAN CORPUSCULAR VOLUME 93.7 fl (80.0-96.0); MONO # 0.7 10^3/uL (0.0-0.8); MONO % 6.7 % (2.0-8.0); NEUTROPHILS # 4.9 10^3/uL (1.5-8.5); NEUTROPHILS % 45.8 % (36.0-66.0); PLATELET COUNT, AUTOMATED 213 10^3/uL (150-450); RED BLOOD COUNT 4.59 10^6/uL (4.30-6.10); WHITE BLOOD COUNT 10.7 10^3/uL (4.0-10.0)
[2023-03-08 17:28] LABS: ALBUMIN 3.6 G/DL (3.2-5.2); ALKALINE PHOSPHATASE 111 U/L (46-116); ALT/SGPT 41 U/L (7.0-40); AST/SGOT 24 U/L (<34); BILIRUBIN,TOTAL 0.3 MG/DL (0.3-1.2); BLOOD UREA NITROGEN 16 MG/DL (9-23); CALCIUM LEVEL 8.8 MG/DL (8.5-10.1); CARBON DIOXIDE LEVEL 27 MMOL/L (20-31); CHLORIDE LEVEL 105 MMOL/L (98-107); CHOLESTEROL LEVEL 189 MG/DL (<200); CHOLESTEROL RISK RATIO 5.38 (<5); CREATININE FOR GFR 0.79 MG/DL (0.70-1.30); GLOMERULAR FILTRATION RATE > 60.0 (>60); GLUCOSE, FASTING 93 MG/DL (60-100); HDL CHOLESTEROL 35.1 MG/DL (>40); NON-HDL-C 153.9 MG/DL; POTASSIUM SERUM 3.9 MMOL/L (3.5-5.1); SODIUM LEVEL 140 MMOL/L (136-145); TOTAL PROTEIN 6.5 G/DL (5.7-8.2); TRIGLYCERIDES LEVEL 429 MG/DL (<150)
[2023-03-08 17:31] LABS: THYROID STIMULATING HORMONE 0.956 uIU/ML (0.55-4.78)
[2023-03-08 17:34] LABS: TOTAL 25(OH) VITAMIN D 20.8 NG/ML (20.0-100.0)
== END ==
LOC: M SFHCADAM 13:54
PROVIDERS: ATTEND Family Medicine
DX: Z00.00 Encounter for general adult medical examination without abnormal findings (principal); E55.9 Vitamin D deficiency, unspecified

== ENCOUNTER → 2023-10-03 | Outpatient (CLI) | payer OTHER ==
[~2023-10-03] MED LIST changes: +ISOVUE-370 76% 100ML VIAL As Ordered ONE; +LORA-1041; +LORA-1041 PO; -LORA-674; -LORA-674 PO
== END ==
LOC: M RAD 12:53
PROVIDERS: ATTEND Nurse Practitioner Family
DX: R91.8 Other nonspecific abnormal finding of lung field (principal); J45.40 Moderate persistent asthma, uncomplicated
CPT/HCPCS: 71260; Q9967

== ENCOUNTER → 2024-02-13 | Outpatient (REF) | payer OTHER ==
[~2024-02-13] MED LIST changes: -ISOVUE-370 76% 100ML VIAL As Ordered ONE
== END ==
LOC: M SFHCADAM 17:05
PROVIDERS: ATTEND Physician Assistant Medical
DX: J02.9 Acute pharyngitis, unspecified (principal)

== ENCOUNTER → 2024-03-19 | Outpatient (REF) | payer OTHER | LOC: M SFHCADAM 10:51 | PROVIDERS: ATTEND Family Medicine | DX: Z00.00 Encounter for general adult medical examination without abnormal findings (principal) ==

== ENCOUNTER → 2024-04-02 | Outpatient (REF) | payer OTHER ==
[2024-04-02 12:49] LABS: BASO # 0.1 10^3/uL (0.0-0.2); BASO % 0.7 % (0.0-1.0); EOS # 0.3 10^3/uL (0.0-0.5); EOS % 3.5 % (0.0-3.0); HEMATOCRIT 45.2 % (42.0-52.0); HEMOGLOBIN 15.1 g/dl (13.5-17.5); LYMPH # 3.8 10^3/uL (1.5-5.0); LYMPH % 39.9 % (24.0-44.0); MEAN CORPUSCULAR HEMOGLOBIN 31.5 pg (27.0-33.0); MEAN CORPUSCULAR HGB CONC 33.4 g/dl (32.0-36.5); MEAN CORPUSCULAR VOLUME 94.2 fl (80.0-96.0); MONO # 0.6 10^3/uL (0.0-0.8); MONO % 6.4 % (2.0-8.0); NEUTROPHILS # 4.7 10^3/uL (1.5-8.5); NEUTROPHILS % 48.9 % (36.0-66.0); PLATELET COUNT, AUTOMATED 227 10^3/uL (150-450); WHITE BLOOD COUNT 9.5 10^3/uL (4.0-10.0)
[2024-04-02 13:29] LABS: ALBUMIN 3.6 G/DL (3.2-5.2); ALKALINE PHOSPHATASE 111 U/L (46-116); ALT/SGPT 31 U/L (7.0-40); AST/SGOT 14 U/L (<34); BILIRUBIN,TOTAL 0.2 MG/DL (0.3-1.2); BLOOD UREA NITROGEN 15 MG/DL (9-23); CALCIUM LEVEL 8.9 MG/DL (8.5-10.1); CARBON DIOXIDE LEVEL 27 MMOL/L (20-31); CHLORIDE LEVEL 110 MMOL/L (98-107); CHOLESTEROL LEVEL 194 MG/DL (<200); CHOLESTEROL RISK RATIO 4.09 (<5); CREATININE FOR GFR 0.91 MG/DL (0.70-1.30); GLOMERULAR FILTRATION RATE > 60.0 (>60); GLUCOSE, FASTING 106 MG/DL (60-100); HDL CHOLESTEROL 47.4 MG/DL (>40); LDL CHOLESTEROL 100.4 MG/DL (<100); NON-HDL-C 146.6 MG/DL; POTASSIUM SERUM 4.4 MMOL/L (3.5-5.1); SODIUM LEVEL 140 MMOL/L (136-145); TOTAL PROTEIN 6.5 G/DL (5.7-8.2); TRIGLYCERIDES LEVEL 231 MG/DL (<150)
== END ==
LOC: M SFHCADAM 10:05
PROVIDERS: ATTEND Family Medicine
DX: Z00.00 Encounter for general adult medical examination without abnormal findings (principal)

== ENCOUNTER 2024-10-11 23:47 | Emergency (ER) | payer OTHER ==
[~2024-10-11] VITALS: Ht 170.2 cm; Wt 112.2 kg
[2024-10-12] MEDS ORDERED: CEPH500C PO (01:41)
[2024-10-12 01:54] VITALS: BP 159/73; TEMP 98.8; O2SAT 95
== END 2024-10-12 01:57 | disposition home or self-care (01) ==
LOC: M ED 23:47
DX: S60.111A Contusion of right thumb with damage to nail, initial encounter (principal); W23.0XXA Caught, crushed, jammed, or pinched between moving objects, initial encounter; Y92.009 Unspecified place in unspecified non-institutional (private) residence as the place of occurrence of the external cause; Y93.9 Activity, unspecified; Y99.9 Unspecified external cause status; J45.909 Unspecified asthma, uncomplicated; Z79.899 Other long term (current) drug therapy

== ENCOUNTER → 2024-10-16 | Outpatient (CLI) | payer OTHER ==
[~2024-10-16] MED LIST changes: +CEPH500C PO
== END ==
LOC: M PLAIMG 09:41
PROVIDERS: ATTEND Nurse Practitioner Family
DX: R91.8 Other nonspecific abnormal finding of lung field (principal)